=== PATIENT | male | born 1995 | race American Indian/Alaskan Native ===

== ENCOUNTER 2018-01-21 23:40 | Inpatient (IN) | payer MEDICAID, OTHER ==
[2018-01-22 00:20] LABS: Basophils % (Auto) 0.4 % (0.0-1.8); Eosinophils # (Auto) 0.1 K/mm3 (0.0-0.4); Eosinophils % (Auto) 1.5 % (0.0-4.3); Hematocrit 45.4 % (35.5-45.6); Hemoglobin 14.9 gm/dl (11.8-15.2); Lymphocytes # (Auto) 1.9 K/mm3 (1.2-5.4); Mean Corpuscular HGB Conc 33 % (32-34); Mean Corpuscular Hemoglobin 29 pg (28-32); Mean Corpuscular Volume 89 fl (84-94); Monocytes # (Auto) 0.4 K/mm3 (0.0-0.8); Monocytes % (Auto) 7.1 % (0.0-7.3); Platelet Count 242 K/mm3 (140-440); Red Cell Distribution Width 13.6 % (13.2-15.2)
--- NOTE | 2018-01-22 00:25 | XRay Report ---
FINAL REPORT PROCEDURE: XR CHEST 1V AP TECHNIQUE: Chest radiograph anteroposterior view. CPT 59518 HISTORY: chest pain COMPARISON: No prior studies are available for comparison. FINDINGS: Heart: Normal. Mediastinum/Vessels: Normal. Lungs/Pleural space: Normal. Bony thorax: No acute osseous abnormality. Life support devices: None. IMPRESSION: No acute cardiopulmonary abnormality.
[2018-01-22 00:42] LABS: Alanine Aminotransferase 11 units/L (7-56); Albumin 4.5 g/dL (3.9-5); BUN/Creatinine Ratio 13; Blood Urea Nitrogen 10 mg/dL (9-20); Calcium 9.6 mg/dL (8.4-10.2); Hemolysis Index 11
[2018-01-22 00:57] LABS: Amphetamine Screen,Urine PRESUMPTIVE NEGATIVE; Benzodiazepines Screen,Urine PRESUMPTIVE NEGATIVE; Cannabinoid Screen,Urine PRESUMPTIVE NEGATIVE; Cocaine Screen,Urine PRESUMPTIVE NEGATIVE; Methadone Screen,Urine PRESUMPTIVE NEGATIVE; Opiate Screen,Urine PRESUMPTIVE NEGATIVE
[2018-01-22] MEDS ORDERED: BABY ASPIRIN PO ONE (01:29)
[2018-01-22] MEDS ORDERED: COLCHICINE PO ONE (01:30)
[2018-01-22 01:57] LABS: INR 0.96 (0.87-1.13)
[2018-01-22 01:58] LABS: Partial Thromboplastin Time 26.9 Sec. (24.2-36.6)
--- NOTE | 2018-01-22 02:00 | Emergency Department Report ---
ED Chest Pain HPI - General Chief Complaint: Chest Pain Stated Complaint: CP Time Seen by Provider: 01/21/18 23:59 Source: patient Mode of arrival: Ambulatory Limitations: No Limitations - History of Present Illness MD Complaint: chest pain -: Gradual, hour(s) (1) Onset: during rest Pain Location: left chest Pain Radiation: none Severity: mild Severity scale (0 -10): 3 Quality: aching Consistency: intermittent Improves With: nothing Worsens With: nothing re: denies: nausea, vomting, diaphoresis, dyspnea, sense of impending doom Other Symptoms: denies: cough, fever, syncope, rash, acid taste in mouth, leg swelling, palpitations, burping - Related Data Previous Rx's Medication Instructions Recorded Last Taken Type Prednisone [Prednisone 5 mg (6-Day 5 mg PO .TAPER #1 tab.ds.pk 01/09/15 Unknown Rx Pack, 21 Tabs)] Allergies Allergy/AdvReac Type Severity Reaction Status Date / Time No Known Allergies Allergy Verified 08/20/13 22:04 Heart Score - HEART Score History: Slightly suspicious EKG: Non-specific Age: < 45 Risk factors: No known risk factors Troponin: < normal limit HEART Score: 1 ED Review of Systems ROS: Stated complaint: CP Other details as noted in HPI Other: GENERAL: No weight change, fatigue, weakness, fever, chills, or night sweats SKIN: No changes in skin or hair, no itching, no rashes, no jaundice HEAD: No trauma, headache, or visual changes EYES: No blurriness, tearing, itching, acute visual loss, conjunctival discoloration, or scleral icterus EARS: No hearing loss, tinnitus, vertigo, or earache NOSE: No rhinorrhea, stuffiness, sneezing, itching, or epistaxis MOUTH: No bleeding gums, hoarseness, sore throat, or swelling CARDIAC: No new murmur, palpitations, dyspnea on exertion, orthopnea, PND, or edema RESPIRATORY: No shortness of breath, wheeze, cough, sputum production, hemoptysis, pneumonia, asthma, bronchitis, or emphysema GI: No change in appetite, nausea, vomiting, dysphagia, change in bowel frequency, diarrhea, constipation, bleeding, hematemesis, melena, hematochezia, or abdominal pain URINARY: No frequency, urgency, polyuria, dysuria, hematuria, or incontinence MUSCULOSKELETAL: No muscle weakness, joint stiffness, decrease in range of motion, redness, swelling NEUROLOGIC: No loss of sensation, numbness, tingling, tremors, weakness, paralysis, seizures HEMATOLOGIC: No anemia, easy bruising, bleeding, petechiae, or purpura ENDOCRINE: No hot or cold intolerance, sweating, polyuria, polydipsia or, polyphagia no thyroid problems PSYCHIATRIC: No change in mood, no anxiety, no depression ED Past Medical Hx - Past Medical History Previous Medical History?: No - Surgical History Past Surgical History?: Yes Additional Surgical History: abd surgery as baby. chin has metal plate - Social History Smoking Status: Never Smoker Substance Use Type: Alcohol - Medications Home Medications: Home Medications Medication Instructions Recorded Confirmed Last Taken Type Prednisone [Prednisone 5 mg (6-Day 5 mg PO .TAPER #1 tab.ds.pk 01/09/15 Unknown Rx Pack, 21 Tabs)] ED Physical Exam - General Limitations: No Limitations - Other Other exam information: GENERAL: Patient in no acute distress HEAD: Normocephalic, atraumatic EYES: PERRLA, EOM intact, no scleral icterus, visual arnold and acuity wnl NOSE: No tenderness, discharge, sinus tenderness MOUTH: No erythema, bleeding, exudate HEART: Regular rate and rhythm, no murmur, S1-S2 are auscultated, pulses are symmetric LUNGS: bilateral breath sounds. No wheezing, rales, rhonchi ABDOMEN: Normal bowel sounds, no tenderness, no rebound, no guarding, no masses , no CVA tenderness MUSCULOSKELETAL: Normal joint range of motion, no redness, no swelling, no tenderness NEUROLOGIC: GCS 15, Alert and Oriented x3, Cranial nerves intact, normal sensation, normal strength, normal gait, no cerebellar deficit PSYCHIATRIC: No homicidal or suicidal ideation, no anxiety, no depression, no hallucinations SKIN: Skin is warm and dry, no wounds, no rashes ED Course Vital Signs 01/22/18 01/22/18 01/22/18 00:10 00:16 00:18 Pulse Rate 48 L 59 L 53 L Respiratory 13 13 18 Rate Blood Pressure 127/75 121/76 O2 Sat by Pulse 100 99 99 Oximetry 01/22/18 01/22/18 01/22/18 00:30 00:45 01:00 Pulse Rate 66 50 L 52 L Respiratory 9 L 18 16 Rate Blood Pressure 143/92 115/74 118/75 O2 Sat by Pulse 100 100 99 Oximetry 01/22/18 01/22/18 01/22/18 01:15 01:31 01:44 Pulse Rate 48 L 59 L 52 L Respiratory 14 19 Rate Blood Pressure 117/70 113/72 O2 Sat by Pulse 98 100 Oximetry ED Medical Decision Making - Lab Data Result diagrams: 01/22/18 00:13 01/22/18 00:13 Laboratory Results - last 24 hr 01/22/18 01/22/18 01/22/18 00:13 00:13 00:13 WBC 5.4 RBC 5.10 H Hgb 14.9 Hct 45.4 MCV 89 MCH 29 MCHC 33 RDW 13.6 Plt Count 242 Lymph % (Auto) 34.0 [place] % (Auto) 7.1 Eos % (Auto) 1.5 Baso % (Auto) 0.4 Lymph # 1.9 [place] # 0.4 Eos # 0.1 Baso # 0.0 Seg Neutrophils % 57.0 Seg Neutrophils # 3.1 PT 13.3 INR 0.96 APTT 26.9 D-Dimer 136.26 Sodium Potassium Chloride Carbon Dioxide Anion Gap BUN Creatinine Estimated GFR BUN/Creatinine Ratio Glucose Calcium Magnesium 1.80 Total Bilirubin AST ALT Alkaline Phosphatase Total Creatine Kinase Troponin T < 0.010 NT-Pro-B Natriuret Pep 17.17 Total Protein Albumin Albumin/Globulin Ratio 01/22/18 00:13 WBC RBC Hgb Hct MCV MCH MCHC RDW Plt Count Lymph % (Auto) [place] % (Auto) Eos % (Auto) Baso % (Auto) Lymph # [place] # Eos # Baso # Seg Neutrophils % Seg Neutrophils # PT INR APTT D-Dimer Sodium 139 Potassium 4.4 Chloride 98.8 Carbon Dioxide 29 Anion Gap 16 BUN 10 Creatinine 0.8 Estimated GFR > 60 BUN/Creatinine Ratio 13 Glucose 94 Calcium 9.6 Magnesium Total Bilirubin 0.40 AST 22 ALT 11 Alkaline Phosphatase 59 Total Creatine Kinase 471 H Troponin T NT-Pro-B Natriuret Pep Total Protein 7.0 Albumin 4.5 Albumin/Globulin Ratio 1.8 - EKG Data Interpretation: pericarditis 01/22/18 04:[address] Butler at [phone] reports no stemi. no acute intervention At 0019 Dr. Butler at [phone] reports EKG concerning for pericarditis. Recommends if troponin negative treat for pericarditis. If troponin positive concerning for myocarditis. no cath intervention at this time. Admit for echo. Aspirin 650 mg po and colchicine for treatment pericarditis. - Radiology Data Radiology results: report reviewed - Medical Decision Making Patient comfortable. Updated with results. Plan admit for further evaluation. Hospitalists accepts admission. Critical care attestation.: If time is entered above; I have spent that time in minutes in the direct care of this critically ill patient, excluding procedure time. ED Disposition Clinical Impression: Pericarditis Qualifiers: Pericarditis type: unspecified type Chronicity: acute Qualified Code(s): I30.9 - Acute pericarditis, unspecified Disposition: 09 OP ADMIT IP TO THIS HOSP Is pt being admited?: Yes Does the pt Need Aspirin: Yes Condition: Stable Time of Disposition: 01:59
--- NOTE | 2018-01-22 02:42 | History and Physical Report ---
History of Present Illness Date of examination: 01/22/18 History of present illness: This is a 22-year-old man with no medical history comes to the ER for evaluation of chest pain. Chest pain is in the left chest, feels like squeezing pain, intermittent every 5seconds, intensity 5/10, radiating to the left shoulder and neck, he cannot identify exacerbating or relieving factor. He denies shortness of breath, no nausea vomiting, diaphoresis. He has been having chest pain intermittently since 2016 Review of systems Constitutional: no weight loss, chills Ears, eyes, nose, mouth and throat: no nasal congestion, no nasal discharge, no sinus pressure, no vision change, no red eye. Neck: No neck pain or rigidity. Cardiovascular: no palpitations Respiratory: no cough Gastrointestinal: no abdominal pain, hematochezia Genitourinary : no frequency , no hematuria Musculoskeletal: no joint swelling or muscle ache Integumentary: no rash, no pruritis Neurological: no parathesias, no numbness, no focal weakness Endocrine: no cold or heat intolerance, no polyuria or polydipsia Hematologic/Lymphatic: no easy bruising, no easy bleeding, no gland swelling Allergic/Immunologic: no urticaria, no angioedema. PAST MEDICAL HISTORY: None PAST SURGICAL HISTORY: None SOCIAL HISTORY: No alcohol abuse, tobacco, +marijuana FAMILY HISTORY: Hypertension Medications and Allergies Allergies Allergy/AdvReac Type Severity Reaction Status Date / Time No Known Allergies Allergy Verified 08/20/13 22:04 Home Medications Medication Instructions Recorded Confirmed Last Taken Type Acetaminophen [Acetaminophen TAB] 650 mg PO Q4H PRN #30 tablet 01/23/18 Unknown Rx Exam - Physical Exam Narrative exam: Gen. appearance: Patient lying in bed, no apparent distress HEENT: Normocephalic, atraumatic, pupils equally round and reactive to light, extraocular movement intact, and no sclericterus,. No JVD or thyromegaly or nodule,neck supple, no carotid bruit ,mucous membranes dry, no exudate or erythema Heart: S1, S2, regular rate and rhythm Lungs: Clear bilaterally, breathing comfortable Abdomen: Positive bowel sounds, nontender, nondistended, no organomegaly Extremity no edema cyanosis, clubbing Neuro: Oriented 3, cranial nerves II-12 intact, motor and sensory intact - Constitutional Vitals: Temp Pulse Resp BP Pulse Ox 52 L 19 113/72 100 01/22/18 01:44 01/22/18 01:31 01/22/18 01:31 01/22/18 01:31 Results - Labs CBC & Chem 7: 01/23/18 06:44 01/23/18 06:44 Labs: Abnormal lab results 01/22/18 01/22/18 Range/Units 00:13 00:13 RBC 5.10 H (3.65-5.03) M/mm3 Total Creatine Kinase 471 H (55-170) units/L - Imaging and Cardiology EKG: image reviewed Chest x-ray: image reviewed Assessment and Plan Assessment Pericarditis Plan Admit to medicine Check cardiac enzymes, echo, consult cardiology Start colchicine, dvt prophalaxis
[2018-01-22] MEDS ORDERED: TYLENOL PO PRN (03:10)
[2018-01-22] MEDS ORDERED: ZOFRAN IV PRN (03:10)
[2018-01-22] MEDS ORDERED: SODIUM CHLORIDE FLUSH SYRINGE 10 ML IV PRN (03:10)
[2018-01-22] MEDS ORDERED: NAPROSYN PO PRN (03:13)
[2018-01-22 03:58] LABS: Creatine Kinase MB 1.1 ng/mL (0.0-4.0)
--- NOTE | 2018-01-22 09:47 | Progress Note ---
Assessment and Plan Assessment and plan: Patient is 22 yo without chronic medical problems except occasion marijuana use who pw chest pains. EKG showed diffuse ST elevations, Cardiology notified, multiple EKGs done. Cardiac Troponins negative, so he was diagnosis with acute pericarditis, etiology unknown. UDS negative. -Acute Pericarditis: 2D Echo, consulted cardiology, Started colchicine, check Hiv -Bradycardia: monitor on telemetry -Dvt prophylaxis: sq lovenox Stress test pending per Cardiology History Interval history: Patient was seen and examined. Follow-up on current diagnosis of chest pains resolved currently. Overnight uneventful. Patient denies any shortness breath, nausea/vomiting or severe headaches. Imaging, nursing note, chart, labs and old chart reviewed. Discussed with patient. Hospitalist Physical - Physical exam Narrative exam: GEN: WDWN, NAD, Awake, Alert, Orientated HEENT: NCAT, EOMI, PERRL, OP Clear NECK: supple, no adenopathy, no thyromegaly, no JVD CVS/HEART: RRR, normal S1S2, pulses present bilaterally CHEST/LUNGS: CTA B, Symmetrical chest expansion, good air entry bilaterally GI/Abdomen: soft, NTND, good bowel sounds, no guarding or rebound /Bladder: no suprapubic tenderness, no CVA or paraspinal tenderness EXT/Skin: no c/c/e, no obvious rash MSK: FROM x 4 Neuro: CN 2-12 grossly intact, no new focal deficits Psych: calm - Constitutional Vitals: Temp Pulse Resp BP Pulse Ox 98.0 F 48 L 16 109/61 98 01/22/18 08:13 01/22/18 08:13 01/22/18 08:13 01/22/18 08:13 01/22/18 08:13 Results - Labs CBC & Chem 7: 01/22/18 00:13 01/22/18 00:13 Labs: Laboratory Last Values WBC 5.4 K/mm3 (4.5-11.0) 01/22/18 00:13 RBC 5.10 M/mm3 (3.65-5.03) H 01/22/18 00:13 Hgb 14.9 gm/dl (11.8-15.2) 01/22/18 00:13 Hct 45.4 % (35.5-45.6) 01/22/18 00:13 MCV 89 fl (84-94) 01/22/18 00:13 MCH 29 pg (28-32) 01/22/18 00:13 MCHC 33 % (32-34) 01/22/18 00:13 RDW 13.6 % (13.2-15.2) 01/22/18 00:13 Plt Count 242 K/mm3 (140-440) 01/22/18 00:13 Lymph % (Auto) 34.0 % (13.4-35.0) 01/22/18 00:13 Brown % (Auto) 7.1 % (0.0-7.3) 01/22/18 00:13 Eos % (Auto) 1.5 % (0.0-4.3) 01/22/18 00:13 Baso % (Auto) 0.4 % (0.0-1.8) 01/22/18 00:13 Lymph # 1.9 K/mm3 (1.2-5.4) 01/22/18 00:13 Brown # 0.4 K/mm3 (0.0-0.8) 01/22/18 00:13 Eos # 0.1 K/mm3 (0.0-0.4) 01/22/18 00:13 Baso # 0.0 K/mm3 (0.0-0.1) 01/22/18 00:13 Seg Neutrophils % 57.0 % (40.0-70.0) 01/22/18 00:13 Seg Neutrophils # 3.1 K/mm3 (1.8-7.7) 01/22/18 00:13 PT 13.3 Sec. (12.2-14.9) 01/22/18 00:13 INR 0.96 (0.87-1.13) 01/22/18 00:13 APTT 26.9 Sec. (24.2-36.6) 01/22/18 00:13 D-Dimer 136.26 ng/mlDDU (0-234) 01/22/18 00:13 Sodium 139 mmol/L (137-145) 01/22/18 00:13 Potassium 4.4 mmol/L (3.6-5.0) 01/22/18 00:13 Chloride 98.8 mmol/L (98-107) 01/22/18 00:13 Carbon Dioxide 29 mmol/L (22-30) 01/22/18 00:13 Anion Gap 16 mmol/L 01/22/18 00:13 BUN 10 mg/dL (9-20) 01/22/18 00:13 Creatinine 0.8 mg/dL (0.8-1.5) 01/22/18 00:13 Estimated GFR > 60 ml/min 01/22/18 00:13 BUN/Creatinine Ratio 13 % 01/22/18 00:13 Glucose 94 mg/dL (75-100) 01/22/18 00:13 Calcium 9.6 mg/dL (8.4-10.2) 01/22/18 00:13 Magnesium 1.80 mg/dL (1.7-2.3) 01/22/18 00:13 Total Bilirubin 0.40 mg/dL (0.1-1.2) 01/22/18 00:13 AST 22 units/L (5-40) 01/22/18 00:13 ALT 11 units/L (7-56) 01/22/18 00:13 Alkaline Phosphatase 59 units/L (35-129) 01/22/18 00:13 Total Creatine Kinase 436 units/L (55-170) H 01/22/18 03:22 CK-MB (CK-2) 1.1 ng/mL (0.0-4.0) 01/22/18 03:22 CK-MB (CK-2) Rel Index 0.2 (0-4) 01/22/18 03:22 Troponin T < 0.010 ng/mL (0.00-0.029) 01/22/18 03:22 NT-Pro-B Natriuret Pep 17.17 pg/mL (0-450) 01/22/18 00:13 Total Protein 7.0 g/dL (6.3-8.2) 01/22/18 00:13 Albumin 4.5 g/dL (3.9-5) 01/22/18 00:13 Albumin/Globulin Ratio 1.8 % 01/22/18 00:13 Urine Opiates Screen Presumptive negative 01/22/18 Unknown Urine Methadone Screen Presumptive negative 01/22/18 Unknown Ur Barbiturates Screen Presumptive negative 01/22/18 Unknown Ur Phencyclidine Scrn Presumptive negative 01/22/18 Unknown Ur Amphetamines Screen Presumptive negative 01/22/18 Unknown U Benzodiazepines Scrn Presumptive negative 01/22/18 Unknown Urine Cocaine Screen Presumptive negative 01/22/18 Unknown U Marijuana (THC) Screen Presumptive negative 01/22/18 Unknown Drugs of Abuse Note Disclamer 01/22/18 Unknown
[2018-01-22] MEDS ORDERED: COLCHICINE PO SCH (10:00)
[2018-01-22] MEDS: LOVENOX SUB-Q SCH (10:07)
[2018-01-22] MEDS: SODIUM CHLORIDE FLUSH SYRINGE 10 ML IV SCH ×2 (10:10→21:33)
[2018-01-22 11:54] LABS: Creatine Kinase MB < 1.0 ng/mL (0.0-4.0)
--- NOTE | 2018-01-22 12:16 | Consultation ---
History of Present Illness Consult date: 01/22/18 Consult reason: chest pain History of present illness: Patient is a 22year old male with no prior medical history who presented with complaints of chest pain. Patient reports pain is positional. He denies shortness of breath, palpitations and dizziness. Chest x-ray is negative. Cardiac enzymes are negative. 12 lead ECG is benign, a normal sinus rhythm. A cardiac consultation was requested for further evaluation. Medications and Allergies Allergies Allergy/AdvReac Type Severity Reaction Status Date / Time No Known Allergies Allergy Verified 08/20/13 22:04 Home Medications Medication Instructions Recorded Confirmed Last Taken Type No Known Home Medications [No 01/22/18 01/22/18 Unknown History Reported Home Medications] Active Meds: Active Medications Acetaminophen (Tylenol) 650 mg PO Q4H PRN PRN Reason: Pain MILD(1-3)/Fever >100.5/PAREDES Colchicine (Colchicine) 0.6 mg PO DAILY [facility] Last Admin: 01/22/18 10:10 Dose: 0.6 mg Enoxaparin Sodium (Lovenox) 40 mg SUB-Q QDAY [facility] Last Admin: 01/22/18 10:07 Dose: 40 mg Ondansetron HCl (Zofran) 4 mg IV Q8H PRN PRN Reason: Nausea And Vomiting Sodium Chloride (Sodium Chloride Flush Syringe 10 Ml) 10 ml IV BID [facility] Last Admin: 01/22/18 10:10 Dose: 10 ml Sodium Chloride (Sodium Chloride Flush Syringe 10 Ml) 10 ml IV PRN PRN PRN Reason: LINE FLUSH Physical Examination Vital Signs Pulse Resp Pulse Ox 48 L 13 100 01/22/18 00:10 01/22/18 00:10 01/22/18 00:10 General appearance: no acute distress HEENT: Positive: PERRL Cardiac: Positive: Reg Rate and Rhythm Lungs: Positive: Normal Breath Sounds Extremities: Absent: edema Results 01/22/18 00:13 01/22/18 00:13 Cardiac Enzymes 01/22/18 01/22/18 01/22/18 Range/Units 00:13 03:22 09:25 AST 22 (5-40) units/L CK-MB (CK-2) 1.1 < 1.0 (0.0-4.0) ng/mL Coagulation 01/22/18 Range/Units 00:13 PT 13.3 (12.2-14.9) Sec. INR 0.96 (0.87-1.13) APTT 26.9 (24.2-36.6) Sec. CBC 01/22/18 Range/Units 00:13 WBC 5.4 (4.5-11.0) K/mm3 RBC 5.10 H (3.65-5.03) M/mm3 Hgb 14.9 (11.8-15.2) gm/dl Hct 45.4 (35.5-45.6) % Plt Count 242 (140-440) K/mm3 Lymph # 1.9 (1.2-5.4) K/mm3 [place] # 0.4 (0.0-0.8) K/mm3 Eos # 0.1 (0.0-0.4) K/mm3 Baso # 0.0 (0.0-0.1) K/mm3 Comprehensive Metabolic Panel 01/22/18 Range/Units 00:13 Sodium 139 (137-145) mmol/L Potassium 4.4 (3.6-5.0) mmol/L Chloride 98.8 (98-107) mmol/L Carbon Dioxide 29 (22-30) mmol/L BUN 10 (9-20) mg/dL Creatinine 0.8 (0.8-1.5) mg/dL Glucose 94 (75-100) mg/dL Calcium 9.6 (8.4-10.2) mg/dL AST 22 (5-40) units/L ALT 11 (7-56) units/L Alkaline Phosphatase 59 (35-129) units/L Total Protein 7.0 (6.3-8.2) g/dL Albumin 4.5 (3.9-5) g/dL Assessment and Plan Chest pain, atypical We will proceed with a treadmill test for further cardiac evaluation.
--- NOTE | 2018-01-22 13:33 | Treadmill Report ---
TREADMILL STRESS TEST INDICATION: Chest pain. ORDERING PHYSICIAN: Bella Simon MD DESCRIPTION OF PROCEDURE: After obtaining the consent, the patient was brought to the stress lab area. The patient underwent a Shawn protocol treadmill stress test without complications. The patient achieved 13 minutes and 38 seconds on a Shawn protocol, reaching a maximum heart rate of 170 beats per minute, which corresponds to 87% of the maximal age predicted heart rate. Baseline EKG is normal. No ischemic EKG changes were recorded. No limiting chest pain or shortness of breath were reported. Normal blood pressure response. IMPRESSION: 1. Normal treadmill stress test. 2. This is a low-risk study associated with 1-year cardiovascular event rate of less than 1%. JOB# [id number] KRYSTLE/KEI
[2018-01-23 07:03] LABS: Basophils % (Auto) 0.6 % (0.0-1.8); Eosinophils # (Auto) 0.1 K/mm3 (0.0-0.4); Eosinophils % (Auto) 1.6 % (0.0-4.3); Hematocrit 45.4 % (35.5-45.6); Lymphocytes # (Auto) 2.2 K/mm3 (1.2-5.4); Lymphocytes % (Auto) 42.9 % (13.4-35.0); Mean Corpuscular HGB Conc 33 % (32-34); Mean Corpuscular Hemoglobin 30 pg (28-32); Mean Corpuscular Volume 89 fl (84-94); Monocytes # (Auto) 0.4 K/mm3 (0.0-0.8); Monocytes % (Auto) 6.9 % (0.0-7.3); Platelet Count 234 K/mm3 (140-440); Red Blood Count 5.09 M/mm3 (3.65-5.03); Red Cell Distribution Width 13.6 % (13.2-15.2)
[2018-01-23 07:27] LABS: BUN/Creatinine Ratio 13; Blood Urea Nitrogen 10 mg/dL (9-20); Calcium 9.4 mg/dL (8.4-10.2); Hemolysis Index 7
[2018-01-23] MEDS: LOVENOX SUB-Q SCH (10:21)
--- NOTE | 2018-01-23 11:14 | Discharge Summary ---
Providers - Providers Date of Admission: 01/22/18 02:41 Date of discharge: 01/23/18 Attending physician: GUS MITCHELL Primary care physician: KENNY BRUCE Hospitalization Condition: Stable Hospital course: Patient is 22 yo without chronic medical problems except occasion marijuana use who pw chest pains. EKG showed diffuse ST elevations, Cardiology notified, multiple EKGs done. Cardiac Troponins negative, so he was diagnosis with acute pericarditis, etiology unknown. UDS negative. -Acute Pericarditis ruled out==> 2D Echo, consulted cardiology, Started colchicine, checked Hiv==> negative -Bradycardia, psy: monitor on telemetry -Chest pains, atypical, costochondritis suspected -Abnormal EKG see Cardiology notes -Dvt prophylaxis: sq lovenox Stress test negative per Cardiology Disposition: DC- TO HOME OR SELFCARE Time spent for discharge: 33 min Core Measure Documentation - Palliative Care Palliative Care/ Comfort Measures: Not Applicable - Core Measures Any of the following diagnoses?: none - VTE Discharge Requirements Deep Vein Thrombosis/Pulmonary Embolism Present on Admission: No Has pt received <5 days of overlap therapy or INR<2.0: No Anticoagulant overlap therapy prescribed at discharge: No Contraindication No Overlap Therapy order at DC: Not Indicated Exam - Physical Exam Narrative exam: GEN: WDWN, NAD, Awake, Alert, Orientated HEENT: NCAT, EOMI, PERRL, OP Clear NECK: supple, no adenopathy, no thyromegaly, no JVD CVS/HEART: RRR, normal S1S2, pulses present bilaterally CHEST/LUNGS: CTA B, Symmetrical chest expansion, good air entry bilaterally GI/Abdomen: soft, NTND, good bowel sounds, no guarding or rebound /Bladder: no suprapubic tenderness, no CVA or paraspinal tenderness EXT/Skin: no c/c/e, no obvious rash MSK: FROM x 4 Neuro: CN 2-12 grossly intact, no new focal deficits Psych: calm - Constitutional Vitals: Temp Pulse Resp BP Pulse Ox 97.9 F 56 L 20 113/70 97 01/23/18 07:46 01/23/18 07:46 01/23/18 07:46 01/23/18 07:46 01/23/18 07:46 Plan Activity: other (no strenous activity until cleared by Cardiology) Diet: regular Follow up with: KENNY BRUCE MD [Primary Care Provider] - 3-5 Days DEBI VAZ MD [Staff Physician] - 7 Days
[2018-01-23 12:50] VITALS: BP 129/83
== END 2018-01-23 13:40 | disposition home or self-care (01) | DRG 206 ==
LOC: ED 23:40 → 4A 01-22 02:41
PROVIDERS: ADMIT Internal Medicine; ATTEND Internal Medicine
DX: M94.0 Chondrocostal junction syndrome [Tietze] (principal); R00.1 Bradycardia, unspecified; F12.90 Cannabis use, unspecified, uncomplicated; Z82.49 Family history of ischemic heart disease and other diseases of the circulatory system
CPT/HCPCS: 36415; 71045; 80048; 80053; 80307; 82550; 82553; 83735; 83880; 84484; 85025; 85379; 85610; 85730; 87806; 93005; 93010; 93017; 93306; 96372; 99285; J1650

== ENCOUNTER 2018-02-04 14:42 | Emergency (ER) | payer SELFPAY ==
[2018-02-04 14:55] VITALS: BP 130/80
[2018-02-04] MEDS ORDERED: MOTRIN PO ONE (15:30)
--- NOTE | 2018-02-04 15:48 | Emergency Department Report ---
ED Upper Extremity Inj HPI - General Chief Complaint: Extremity Injury, Upper Stated Complaint: HAND INJURY Time Seen by Provider: 02/04/18 15:19 Source: patient Mode of arrival: Ambulatory Limitations: No Limitations - History of Present Illness Initial Comments: This is a 22-year-old male nontoxic, well nourished in appearance, no acute signs of distress presents to the ED with c/o of left hand pain 1 week. Patient stated that he punched the wall last week. Patient denies any other trauma. Patient denies any numbness, tingling, fever, chills, nausea, vomiting , chest pain, shortness of breath, headache, stiff neck. Patient denies any joint swelling or joint redness. Patient denies decreased range of motion. Patient stated has decreased gait due to pain. Patient denies any allergies or significant past medical history. MD Complaint: Injury to:: left, hand -: week(s) (1) Other Extremity Injury: Hand: Right Other Injuries: none Severity scale (0 -10): 8 Improves With: none Worsens With: none Context: direct blow Associated Symptoms: denies other symptoms. denies: weakness, numbness, neck pain, suspects foreign body, nausea/vomiting, heard/felt popping sensat - Related Data Previous Rx's Medication Instructions Recorded Last Taken Type Acetaminophen [Acetaminophen TAB] 650 mg PO Q4H PRN #30 tablet 01/23/18 Unknown Rx Acetaminophen/Codeine [Tylenol 1 tab PO Q6H PRN #12 tab 02/04/18 Unknown Rx /Codeine # 3 tab] Ibuprofen [Motrin] 600 mg PO Q8H PRN #30 tablet 02/04/18 Unknown Rx Allergies Allergy/AdvReac Type Severity Reaction Status Date / Time No Known Allergies Allergy Verified 08/20/13 22:04 ED Review of Systems ROS: Stated complaint: HAND INJURY Other details as noted in HPI Constitutional: denies: chills, fever Eyes: denies: eye pain, eye discharge, vision change ENT: denies: ear pain, throat pain Respiratory: denies: cough, shortness of breath, wheezing Cardiovascular: denies: chest pain, palpitations Endocrine: no symptoms reported Gastrointestinal: denies: abdominal pain, nausea, diarrhea Genitourinary: denies: urgency, dysuria Musculoskeletal: arthralgia. denies: back pain, joint swelling Skin: denies: rash, lesions Neurological: denies: headache, weakness, paresthesias Psychiatric: denies: anxiety, depression Hematological/Lymphatic: denies: easy bleeding, easy bruising ED Past Medical Hx - Past Medical History Previous Medical History?: No - Surgical History Past Surgical History?: Yes Additional Surgical History: abd surgery as baby. chin has metal plate - Social History Smoking Status: Current Every Day Smoker Substance Use Type: Alcohol, Marijuana - Medications Home Medications: Home Medications Medication Instructions Recorded Confirmed Last Taken Type Acetaminophen [Acetaminophen TAB] 650 mg PO Q4H PRN #30 tablet 01/23/18 Unknown Rx Acetaminophen/Codeine [Tylenol 1 tab PO Q6H PRN #12 tab 02/04/18 Unknown Rx /Codeine # 3 tab] Ibuprofen [Motrin] 600 mg PO Q8H PRN #30 tablet 02/04/18 Unknown Rx ED Physical Exam - General Limitations: No Limitations General appearance: alert, in no apparent distress - Head Head exam: Present: atraumatic, normocephalic - Eye Eye exam: Present: normal appearance Pupils: Present: normal accommodation - ENT ENT exam: Present: normal exam, mucous membranes moist - Neck Neck exam: Present: normal inspection, full ROM. Absent: tenderness, meningismus, lymphadenopathy - Respiratory Respiratory exam: Present: normal lung sounds bilaterally. Absent: respiratory distress, wheezes, rales, rhonchi, stridor, chest wall tenderness, accessory muscle use, decreased breath sounds, prolonged expiratory - Cardiovascular Cardiovascular Exam: Present: regular rate, normal rhythm, normal heart sounds. Absent: bradycardia, tachycardia, irregular rhythm, systolic murmur, diastolic murmur, rubs, gallop - GI/Abdominal GI/Abdominal exam: Present: soft, normal bowel sounds. Absent: distended, tenderness, guarding, rebound, rigid, diminished bowel sounds - Rectal Rectal exam: Present: deferred - Extremities Exam Extremities exam: Present: normal inspection, full ROM, tenderness, normal capillary refill. Absent: joint swelling - Expanded Upper Extremity Exam Left General: Present: normal inspection Shoulder Exam: Present: normal inspection, full ROM. Absent: tenderness, swelling Upper Arm exam: Present: normal inspection, full ROM. Absent: tenderness, swelling Elbow exam: Present: normal inspection, full ROM. Absent: tenderness, swelling Forearm Wrist exam: Present: normal inspection, full ROM. Absent: tenderness, swelling Hand Wrist exam: Present: normal inspection, full ROM, tenderness, swelling. Absent: abrasion, laceration, ecchymosis, deformity, crepidus, dislocation, erythema, amputation, nail avulsion, subungual hematoma Neuro motor exam: Present: wrist extension intact, thumb opposition intact, thumb IP flexion intact, thumb adduction intact, fingers 2-5 abduction intact Neurosensory exam: Present: 2-point discrimination, radial nerve intact, ulnar nerve intact, median nerve intact Vascular: Present: vascular compromise, normal capillary refill, radial pulse, brachial pulse, ulnar pulse - Back Exam Back exam: Present: normal inspection, full ROM - Neurological Exam Neurological exam: Present: alert, oriented X3 - Psychiatric Psychiatric exam: Present: normal affect, normal mood - Skin Skin exam: Present: warm, dry, intact, normal color. Absent: rash ED Course Vital Signs 02/04/18 14:51 Temperature 97.9 F Pulse Rate 64 Respiratory 18 Rate Blood Pressure 130/80 O2 Sat by Pulse 97 Oximetry - Reevaluation(s) Reevaluation #1: 02/04/18 16:45 Patient is speaking in full sentences with no signs of distress noted. ED Medical Decision Making - Medical Decision Making This is a 22-year-old male that presents with left thumb fracture. Patient is stable and was examined by me. X-ray has been obtained and dictated by the radiologist. Patient is notified of the x-ray report with noted by the patient. Patient does have normal gait with no tenderness and no joint swelling. No ecchymosis. no joint redness or swelling. Not warm to touch. No signs of cellulites present. Patient received a thumb spica splint. Post splint assessment: neurovasular intact; normal cap refill <2 second; normal sensation; denies decreaed sensation; normal ROM of digits. Patient was instructed to RICE therapy. Patient received Motrin for pain. Patient is discharged with Motrin. At time of discharge, the patient does not seem toxic or ill in appearance. No acute signs of distress noted. Patient agrees to discharge treatment plan of care. No further questions noted by the patient. Critical care attestation.: If time is entered above; I have spent that time in minutes in the direct care of this critically ill patient, excluding procedure time. ED Disposition Clinical Impression: Fracture of thumb, left, closed Qualifiers: Encounter type: initial encounter Phalanx: proximal Fracture alignment: nondisplaced Qualified Code(s): S62.515A - Nondisplaced fracture of proximal phalanx of left thumb, initial encounter for closed fracture Disposition: TO HOME OR SELFCARE Is pt being admited?: No Does the pt Need Aspirin: No Condition: Stable Instructions: Finger Fracture (ED), Splint Care (ED), Acetaminophen/Codeine ( By mouth), Ibuprofen (By mouth) Additional Instructions: Follow-up with a orthopedic doctor in 3-5 days or if symptoms worsen and continue return to emergency room as soon as possible. Prescriptions: Acetaminophen/Codeine [Tylenol /Codeine # 3 tab] 1 tab PO Q6H PRN #12 tab PRN Reason: Pain , Severe (7-10) Ibuprofen [Motrin] 600 mg PO Q8H PRN #30 tablet PRN Reason: Pain Referrals: PRIMARY CARE, [Primary Care Provider] - 3-5 Days EMERY CURTIS MD [Staff Physician] - 3-5 Days [facility] [Outside] - 3-5 Days [facility] [Outside] - 3-5 Days Forms: Work/School Release Form(ED)
--- NOTE | 2018-02-04 16:25 | XRay Report ---
FINAL REPORT EXAM: XR HAND 3+V LT HISTORY: left hand pain TECHNIQUE: 3 views of the left hand PRIORS: None. FINDINGS: There is a comminuted fracture of the proximal metaphysis of the thumb metacarpal with displacement and angulation. Fracture line extends into the CMC joint. There is also impaction at the fracture site. Other bones appear intact. No evidence of dislocation. IMPRESSION: Thumb proximal metacarpal comminuted intra-articular fracture
== END 2018-02-04 17:18 | disposition home or self-care (01) ==
LOC: ED 14:42
DX: S62.515A Nondisplaced fracture of proximal phalanx of left thumb, initial encounter for closed fracture (principal); F17.200 Nicotine dependence, unspecified, uncomplicated; W22.01XA Walked into wall, initial encounter; Y93.89 Activity, other specified; Y92.89 Other specified places as the place of occurrence of the external cause; Y99.8 Other external cause status